=== PATIENT | male | born 1965 | race African-American/Black ===

== ENCOUNTER 2018-01-20 12:15 | Outpatient (CLI) | payer BC ==
[2018-01-20 12:44] LABS: ALT (SGPT) 27 U/L (8-55); AST (SGOT) 28 U/L (5-34); Albumin 4.2 g/dL (3.5-5.0); Alkaline Phosphatase 59 U/L (40-150); Anion Gap 12 mmol/L (10-20); BUN (Urea Nitrogen) 23 mg/dL (8.4-25.7); Bilirubin, Total 0.4 mg/dL (0.2-1.2); Calc. Creatinine Clearance 0 mL/min (70-130); Calcium 9.3 mg/dL (7.8-10.44); Carbon Dioxide 27 mmol/L (22-29); Cardiac Risk 2.6 (Less than 4.5); Chloride 103 mmol/L (98-107); Cholesterol 206 mg/dl (< 200 Desired); Estimated GFR-MDRD 43; Globulin 3.3 g/dL (2.4-3.5); Glucose 95 mg/dL (70-105); HDL Cholesterol 80 mg/dL (>60 Neg Risk); LDL Cholesterol, Calculated 115 mg/dL; Potassium 4.3 mmol/L (3.5-5.1); Protein, Total 7.5 g/dL (6.0-8.3); Sodium 138 mmol/L (136-145); Triglycerides 55 mg/dL (Less than 150)
[2018-01-20 12:55] LABS: #Basophils 0.1 thou/uL (0.0-0.2); #Eosinphils 0.1 thou/uL (0.0-0.7); #Lymphocytes 2.4 thou/uL (1.20-3.40); #Monocytes 0.6 thou/uL (0.11-0.59); #Neutrophils 2.7 thou/uL (1.40-6.50); %Basophils 1.9 % (0.0-1.0); %Lymphocytes 41.1 % (21.0-51.0); %Monocytes 9.4 % (0.0-10.0); %Neutrophils 45.6 % (42.0-75.0); Hemoglobin 14.3 g/dL (14.0-18.0); Mean Corpuscular HGB CONC 33.5 g/dL (32.0-36.0); Mean Corpuscular Hemoglobin 31.3 pg (27.0-31.0); Mean Corpuscular Volume 93.5 fl (80.0-94.0); Mean Platelet Volume 6.2 fL (7.4-10.4); Platelet Count 331 thou/uL (130-400); RBC Distribution Width 13.8 % (11.5-14.5); Red Blood Cell (RBC) Count 4.56 mill/uL (4.70-6.10); White Blood Cell (WBC) Count 5.9 thou/uL (4.8-10.8)
[2018-01-20 13:14] LABS: Free T4 (Free Thyroxine) 0.84 ng/dL (0.70-1.48); PSA-Asymptomatic (SCREENING) 0.68 ng/mL (0-4.0); Thyroid Stimulating Hormone 0.7265 uIU/mL (0.35-4.94)
--- NOTE | 2018-01-20 13:17 | RAD ---
THERE VIEWS RIGHT HAND: Date: 01-20-18 History: Bilateral thumb pain and hand pain. Symptoms have been present for 8 months. No known injur y. Patient also reports difficulty grasping objects. 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 Scattered minimal osteoarthritis is present predomin ately involving the distal interphalangeal joints. Remote avulsion injury involving the base of the d istal phalanx little finger is noted. No acute fracture or dislocation is seen involving the right randle nd. 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 No other interval change from the prior ex am. IMPRESSION: No acute osseous abnormality right hand. POS: [facility]
--- NOTE | 2018-01-20 13:20 | RAD ---
THREE VIEWS LEFT HAND: Date: 01-20-18 History: Bilateral thumb and hand pain for 8 months. Difficulty grasping objects. Comparison: None available. FINDINGS: There is scattered osteoarthritis, greatest involving the first carpal metacarpal joint. Lucencies ar e seen within the lunate bone and triquetral bone which may be related to subchondral cystic changes or possibly intraosseous ganglia. There is mild deformity involving the base of the distal phalanx of the thumb which may be related to a remote injury. No fracture or dislocation is seen involving the left hand. There is a lucency seen within the metacarpal head of the index finger which may be relate d to subchondral cystic change. IMPRESSION: 1. No acute osseous abnormality left hand. 2. Scattered areas of osteoarthritis. POS: [facility]
[2018-01-20 14:08] LABS: Hemoglobin A1c 5.1 % (4.0-6.0)
[2018-01-20 14:34] LABS: Vitamin D, 25 Hydroxy 7.2 ng/ml (> 30.0)
== END 2018-01-20 12:16 | disposition home or self-care (01) ==
LOC: SCSRAD 12:15
PROVIDERS: ATTEND Family Medicine
DX: M79.641 Pain in right hand (principal); M79.642 Pain in left hand; M18.12 Unilateral primary osteoarthritis of first carpometacarpal joint, left hand
CPT/HCPCS: 36415; 80053; 80061; 82306; 83036; 84439; 84443; 85025; G0103

== ENCOUNTER 2018-08-05 11:05 | Outpatient (CLI) | payer BC ==
[2018-08-05] MEDS ORDERED: ISOVUE-370 76%-LOCM 1 ML ONE (12:48)
--- NOTE | 2018-08-05 14:30 | CT ---
CT ABDOMEN WITH CONTRAST CT PELVIS WITH CONTRAST 08/05/18 HISTORY: Left lower quadrant pain x3 months. Weight loss. FINDINGS: Dependent atelectatic changes. Heart size is within normal limits. No pericardial effusion. The visua lized aorta has a normal caliber. No periaortic fat stranding. Portal vein is patent. The liver, spleen, pancreas, and adrenal glands have appropriate enhancement. There are nonspecific gastrohepatic lymph nodes measuring 0.8 cm in craniocaudal dimension. No retroc [place] or periportal lymphadenopathy. Symmetric enhancement of the kidneys. Bilaterally, no obstructive uropathy. No mesenteric mass, lymphadenopathy, free air or free fluid. Gastric mucosal, duodenum and multiple normal caliber small bowel loops are identified. Ileocecal ankush ction is normal. Appendix is not appreciated. No inflammation of the cecal apex. There is contrast an d fecal material in a nondistended, nondilated colon. PELVIC CT: No mass, lymphadenopathy, free air or free fluid. Unremarkable urinary bladder. There has been removal of transpedicular screws at L4 and L5. 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 IMPRESSION: 1. Nonspecific gastrohepatic lymph node. 2. No acute abnormality in the abdomen or pelvis. POS: [facility]
== END 2018-08-05 11:06 | disposition home or self-care (01) ==
LOC: BICCT 11:05
PROVIDERS: ATTEND Internal Medicine
DX: R10.84 Generalized abdominal pain (principal); R63.4 Abnormal weight loss
CPT/HCPCS: 74177

== ENCOUNTER 2019-01-06 13:12 | Outpatient (CLI) | payer OTHER ==
--- NOTE | 2019-01-06 16:06 | ULT ---
BILATERAL LOWER EXTREMITY ARTERIAL DOPPLER WITH SPECTRAL ANALYSIS AND COLORFLOW EVALUATION: 01/06/2019 HISTORY: Bilateral lower extremity pain and edema. FINDINGS: Rodriguez-scale, color-flow, Doppler evaluation, and spectral analysis of the bilateral lower extremity ar terial vessels was performed with 2D imaging. There are triphasic waveforms seen throughout the bila teral lower extremity arterial vessels, from the level of the common femoral artery to the level of t he tibial arteries and dorsalis pedis arteries. There are symmetric peak systolic velocity measureme nts between each lower extremity, without an elevated peak systolic velocity seen. IMPRESSION: Normal peak systolic velocity measurements and triphasic waveforms seen throughout the bilateral lowe r extremity arterial vessels, without findings to suggest a significant level of stenosis. POS: [facility]
== END 2019-01-06 13:13 | disposition home or self-care (01) ==
LOC: ULT 13:12
PROVIDERS: ATTEND Family Medicine
DX: R60.0 Localized edema (principal); I08.3 Combined rheumatic disorders of mitral, aortic and tricuspid valves
CPT/HCPCS: 93306; 93923